=== PATIENT | male | born 1935 | race Caucasian/White ===

== ENCOUNTER 2018-05-23 14:20 | Observation (INO) | payer MEDICARE, OTHER ==
--- NOTE | 2018-05-23 15:09 | ED ---
Syncope/Near Syncope - HPI Summary HPI Summary: This patient is an 82 year old M presenting to [facility] accompanied by his and daughter with a chief complaint of syncope since 1245. Pt doesnt remember events after rising from his couch and walking towards the dining room. Pts was in the kitchen and heard him fall but did not see it. She endorses a chair was knocked over, so he was either trying to sit/fell out of the chair, or simply took it with him during the fall. She notes the pt was unconscious for 3 minutes, and unresponsive for around 1 minute more. Pts endorses pt was continuously rubbing his head after regaining consciousness. Pt endorses confusion for many minutes s/p reawakening. Pt endorses this is the 3rd time this has happened, and second time this month. He notes that this time , as with the past 2 times, pt got up too fast and gets blurred vision, lightheadedness. Rx recently levothyroxine. Today, pt was at PCP office at 1100 AM and was hypotensive, measured at 80/40 at the time. Pt endorses PMHx peripheral neuropathy, paresthesia of hands, ocular migraines. Pt denies abd pain. Pt endorses back soreness. - History Of Current Complaint Time Seen by Provider: 05/23/18 14:24 Hx Obtained From: Patient, Family/Soils Engineer Onset/Duration: Sudden Onset, Lasting Minutes, Resolved Timing: Constant Context: Witnessed, Loss Of Consciousness Activity At Onset: Unknown Aggravating Factor(s): Position Change Alleviating Factor(s): Spontaneous Resolution Associated Signs And Symptoms: AMS - resolved, unresponsive for a few minutes, confused, Lightheadedness, Pain - back, Weakness Related History: Similar Episode/Dx as - 3x total, 2x this month Frequency: Episodes x___ - 3, Episodes Lasting ____ (in Mins/Days/Weeks/Years) - 5-10 minutes - Allergies/Home Medications Allergies/Adverse Reactions: Allergies Allergy/AdvReac Type Severity Reaction Status Date / Time Iodinated Contrast- Oral and Allergy Anaphylatic Verified 05/23/18 18:44 IV Dye Shock Home Medications: Home Medications Alfuzosin HCl [Alfuzosin HCl ER] 10 mg PO DAILY 05/23/18 [History Confirmed ] Allopurinol 100 mg PO DAILY 05/23/18 [History Confirmed 05/23/18] Aspirin [Adult Aspirin] 81 mg PO DAILY 05/23/18 [History Confirmed 05/23/18] Atorvastatin* [Lipitor 20 MG*] 20 mg PO DAILY 05/23/18 [History Confirmed ] Furosemide 20 mg PO DAILY 05/23/18 [History Confirmed 05/23/18] Isosorbide Mononitrate ER TAB* [Imdur ER TAB*] 30 mg PO DAILY 05/23/18 [History Confirmed 05/23/18] Levothyroxine TAB* [Synthroid 25 MCG TAB*] 25 mcg PO DAILY 05/23/18 [History Confirmed 05/23/18] Lisinopril 10 tab PO DAILY 05/23/18 [History Confirmed 05/23/18] Metoprolol Tartrate TAB* [Lopressor TAB*] 25 mg PO BID 05/23/18 [History Confirmed 05/23/18] Nitroglycerin 0.4 mg SL DAILY PRN 05/23/18 [History Confirmed 05/23/18] PMH/Surg Hx/FS Hx/Imm Hx Endocrine/Hematology History: Reports: Hx Thyroid Disease Comment Only: Hx Diabetes - GLAUCOMA Cardiovascular History: Reports: Hx Angina, Hx Coronary Artery Disease, Hx Hypotension, Hx Hypertension - H/O HEART ATTACK, Hx Myocardial Infarction, Other Cardiovascular Problems/Disorders - HX OF ANGINA, TAKES NITRO Denies: Hx Pacemaker/ICD GI History: Denies: Hx Ileostomy History: Reports: Other Problems/Disorders - TURP AND HAS INCONTINENCE Musculoskeletal History: Reports: Hx Back Problems Sensory History: Reports: Hx Cataracts, Hx Contacts or Glasses, Hx Glaucoma, Hx Hearing Aid, Hx Hearing Problem Denies: Hx Deafness Opthamlomology History: Reports: Hx Cataracts, Hx Contacts or Glasses, Hx Glaucoma Denies: Hx Legally Blind EENT History: Reports: Hx Hearing Problem, Hx Hearing Aid Denies: Hx Deafness Neurological History: Reports: Hx Migraine - ocular, Other Neuro Impairments/ Disorders - OCULAR MIGRAINES; NEUROPATHY Psychiatric History: Denies: Hx Autism, Hx Panic Disorder, Hx Schizophrenia - Surgical History Surgery Procedure, Year, and Place: LAMINECTOMY-2008;GALLBLADDER; TURP;CATARACT; CARDIAC CATH W/O STENTS; Infectious Disease History: Denies: Traveled Outside the [place] in Last 30 Days - Family History Known Family History: Positive: Cardiac Disease, Other - CVA Negative: Diabetes - Social History Occupation: Retired Lives: With Family Alcohol Use: None Hx Substance Use: No Substance Use Type: Reports: None Hx Tobacco Use: No Smoking Status (MU): Never Smoked Tobacco Review of Systems Positive: Other - Resolved AMS Positive: Blurred Vision Negative: Abdominal Pain Positive: no symptoms reported Positive: Myalgia - back Positive: Paresthesia - peripheral neuropathy, Numbness - peripheral neuropathy , Syncope All Other Systems Reviewed And Are Negative: Yes Physical Exam - Summary Physical Exam Summary: Appearance: Well appearing, no pain distress Skin: warm, dry, reflects adequate perfusion Head/face: normal Eyes: EOMI, ALEXX ENT: normal Neck: supple, non-tender Respiratory: CTA, breath sounds present Cardiovascular: RRR, pulses symmetrical Abdomen: non-tender, soft Bowel: present Musculoskeletal: normal, strength/ROM intact. Neuro: normal, sensory motor intact, A&Ox3 Triage Information Reviewed: Yes Vital Signs Reviewed: Yes Diagnostics - Laboratory Result Diagrams: 05/23/18 15:24 05/23/18 15:24 Lab Statement: Any lab studies that have been ordered have been reviewed, and results considered in the medical decision making process. - Radiology CXR Xray Interpretation: Positive (See Comments) Radiology Interpretation Completed By: Radiologist - Low lung volumes compared with the prior exam with mild LEFT basilar atelectasis. Dr. Green has reviewed this report. - CT Brain CT Interpretation: No Acute Changes CT Interpretation Completed By: Radiologist - #. No traumatic brain injury evident. #. Suggestion of a small posterior scalp hematoma. #. Mild involutional change and stigmata of chronic small vessel ischemic disease. #. No acute intracranial process evident. Dr. Green has reviewed this report. - EKG 1510 Cardiac Rate: NL - 83 EKG Rhythm: Sinus Rhythm ST Segment: Normal Ectopy: None EKG Interpretation: No acute changes Course/Dx Course Of Treatment: An 82-year-old M presents to the ED with a CC of syncope for 3-5 minutes. (+) blurred vision, LOC, AMS, confusion, lightheadedness, back soreness, hypotension (80/40 at 1100). (-) abd pain, dizziness. 3rd time total, 2nd this month, PMHx ocular migraines, peripheral neuropathy, HTN, thyroid problems. A CXR reveals low lung volumes compared with the prior exam with mild LEFT basilar atelectasis. An EKG reveals NSR at 83 BPM with no acute changes. A CTB reveals. In the ED course, pt was given nl saline. Pt shows low H &H, and high BUN and creatinine. - Diagnoses Differential Diagnosis/HQI/PQRI: Positive: Cerebral Vascular Accident, Dysrhythmia, Metabolic Reaction, Transient Ischemic Attack, Vasovagal Episode Provider Diagnoses: Syncope, Dehydration, Orthostatic hypertension, Renal failure - Physician Notifications Discussed Care of Patient With: Joselyn Campbell Time Discussed With Above Provider: 16:40 Instructed by Provider To: Other - accepts admission - Critical Care Time Critical Care Time: 30-74 min Discharge - Sign-Out/Discharge Documenting (check all that apply): Patient Departure - admit - Discharge Plan Condition: Fair Disposition: ADMITTED TO [facility] - Billing Disposition and Condition Condition: FAIR Disposition: Admitted to [facility] - Attestation Statements Document Initiated by Lonnie: Yes Documenting Scribe: Roger Guerrero Provider For Whom Lonnie is Documenting (Include Credential): Dr. Fco Green MD Scribe Attestation: Roger Hooker, scribed for Dr. Fco Green MD on 05/23/18 at 1843. Scribe Documentation Reviewed: Yes Provider Attestation: The documentation as recorded by the Roger boswell accurately reflects the service I personally performed and the decisions made by Dr. Fco krishna MD
[2018-05-23 15:34] LABS: ABS Basophils 0.1 10^3/ul (0-0.2); ABS Eosinophils 0.1 10^3/ul (0-0.6); ABS Lymphocytes 1.4 10^3/ul (1.0-4.8); ABS Monocytes 0.6 10^3/ul (0-0.8); ABS Neutrophils 6.6 10^3/ul (1.5-7.7); ABS Nucleated RBC 0 10^3/ul; Eosinophil % 0.6 % (0-6); Hematocrit 36 % (42-52); Hemoglobin 11.8 g/dl (14.0-18.0); Lymphocyte % 16.2 % (25-47); Mean Corpuscular HGB Conc 33 g/dl (31-36); Mean Corpuscular Hemoglobin 29 pg (27-31); Mean Corpuscular Volume 87 fL (80-94); Mean Platelet Volume 10.6 um3 (7.4-10.4); Nucleated Red Blood Cells % 0.1; Platelet Count 130 10^3/ul (150-450); Red Blood Count 4.08 10^6/ul (4.00-5.40); Red Cell Distribution Width 15 % (10.5-15); White Blood Count 8.7 10^3/ul (3.5-10.8)
[2018-05-23 15:45] LABS: INR 0.96 (0.77-1.02)
[2018-05-23 15:53] LABS: EGFR Non-African American 31.1 (>60)
--- NOTE | 2018-05-23 15:56 | RAD ---
Indication: Dizziness. Coronary artery disease with prior myocardial infarction. Comparison: April 17, 2018 Technique: Sitting AP chest 1552 hours Report: Suboptimal inspiration for this patient compared with the prior exam with associated mild LEFT basilar atelectasis. No focal pulmonary lesion, compelling alveolar consolidation concerning, pleural effusion, pneumothorax. The heart, pulmonary vasculature, and mediastinal contours are unremarkable. Advanced degenerative arthropathy at the acromioclavicular and glenohumeral joints noted. IMPRESSION: #. Low lung volumes compared with the prior exam with mild LEFT basilar atelectasis.
[2018-05-23] MEDS ORDERED: NS 0.9% 1000 ML* 1,000 ML IV ONE (16:00)
--- NOTE | 2018-05-23 16:08 | RAD ---
Indication: Syncopal episode. Comparison: June 06, 2007 Technique: Noncontrast CT vertex of skull through foramen magnum. Report: Mild prominence of the cerebral sulci and cerebellar fissures reflecting atrophy. Unremarkable ventricles and basal cisterns. Negative for lagunas matter white matter obscuration, intra or extra-axial hemorrhage, or mass effect. Decreased density in the periventricular and subcortical white matter while non-specific is most likely due to chronic microangiopathy. Unremarkable partially visualized orbital contents. Atherosclerotic calcification of the intracranial internal carotid arteries noted. No suspicious calvarial or skull base lesions or fracture evident. Indolent thickening of the inner table of the frontal bone noted without concern. Clear visualized paranasal sinuses and mastoid air spaces. Suggestion of a small posterior scalp hematoma. IMPRESSION: #. No traumatic brain injury evident. #. Suggestion of a small posterior scalp hematoma. #. Mild involutional change and stigmata of chronic small vessel ischemic disease. #. No acute intracranial process evident.
[2018-05-23] MEDS ORDERED: NS 0.9% 1000 ML* 1,000 ML IV SCH (18:45)
[2018-05-23] MEDS: Metoprolol Tartrate TAB* 25 MG PO SCH (21:15)
[2018-05-23] MEDS: Heparin VIAL(*) 5000 UNITS/ML VIAL (FIVE THOUSAND) SUBCUT SCH (21:15)
--- NOTE | 2018-05-23 21:33 | HP ---
CC: Dr. Chandana Espinal; Dr. Beltran Dixon * HISTORY AND PHYSICAL: DATE OF ADMISSION: 05/23/18 PRIMARY CARE PROVIDERS: Dr. Chandana Espinal at the [facility] and Dr. Beltran Dixon. ATTENDING PHYSICIAN: Dr. Segundo York * (dictated by Izabela Elias NP) CHIEF COMPLAINT: Syncopal episode. HISTORY OF PRESENT ILLNESS: Mr. Martinez is an 82-year-old male with past medical history significant for coronary artery disease, status post CA, hepatitis B, ocular migraine, spinal stenosis, status post back surgery, peripheral neuropathy, hyperlipidemia, who was seen at Dr. Dixon's office at approximately 11 a.m. this morning, was noted to be hypotensive with a blood pressure of 80/40. The patient went home and at around 12:45, he had a syncopal episode. He does not recall the events after he got up from the couch and was walking towards the dining room. His was in the kitchen and heard him fall, but did not see it. She noted that chair was knocked over as though he was either trying to sit or fall on to the chair or he knocked it over during his fall. She noted that he was unconscious for 3 to 4 minutes. The patient was continuously rubbing his head after regaining consciousness. He had a few minutes of confusion after reawakening. This is the third time this event has happened. He reports this is the second time this month and previously he had an event at the end of February. The previously 2 times, he had got up too fast, developed blurred vision and lightheadedness. His only recent medication change was levothyroxine. He denies any fevers, chills, chest pain, shortness of breath. He reports ocular migraines, which he often gets an aura prior to them occurring. He felt as though today on his way home from Dr. Dixon's office that the lights were making his vision worse. Due to his syncopal episode, he presented to the emergency room for further evaluation. While in the emergency room, he had a head CT, which was negative for acute findings. He had a chest x-ray with no acute findings. He had EKG without signs of ischemia. He had labs showing an elevated creatinine of 2.05. He was noted to have thrombocytopenia and elevated total bilirubin, troponin of 0.01. He received a liter of fluids. He reported feeling dizziness when being moved from the stretcher to the table for his imaging. Hospitalists were asked to evaluate the patient for admission. PAST MEDICAL HISTORY: 1. Coronary artery disease, status post CA. 2. Hepatitis B. 3. Ocular migraines. 4. Spinal stenosis of the lumbar spine. 5. Peripheral neuropathy. 6. Hyperlipidemia. 7. Hypothyroidism. PAST SURGICAL HISTORY: 1. Status post transurethral resection of the prostate. 2. Status post cholecystectomy. 3. Status post laminectomy at 2 levels of his lumbar spine. 4. Status post bilateral cataract extractions. MEDICATIONS: Home medications include; 1. Nitroglycerin 0.4 mg sublingual daily as needed for chest pain. 2. Metoprolol tartrate 25 mg oral twice daily. 3. Lisinopril 10 mg oral daily. 4. Isosorbide mononitrate 30 mg oral daily. 5. Furosemide 20 mg oral daily. 6. Alfuzosin 10 mg oral daily. 7. Atorvastatin 20 mg oral daily. 8. Allopurinol 100 mg oral daily. 9. Aspirin 81 mg oral daily. 10. Levothyroxine 25 mcg oral daily. ALLERGIES: CONTRAST DYE. FAMILY HISTORY: The patient's brother had a history of congestive heart failure. He has a brother with a history of an CA, status post CABG. His mother had a history of CABG. He had a paternal aunt and uncle who passed suddenly; they were in their 40s; one he believes had a blood clot, the other he is unsure of. Paternal uncle with a history of diabetes mellitus and a paternal grandfather with a history of rectal cancer. SOCIAL HISTORY: He denies tobacco, recreational drug use. He drinks an alcoholic beverage once weekly with his . He lives with his , Lulu Martinez, who will be his surrogate decision maker in the event he is unable to make decisions for himself. REVIEW OF SYSTEMS: I performed an 11-point review of systems. All the pertinent positives and negatives are mentioned in the history of present illness. The patient denies any urinary symptoms. The remaining review of systems is negative. PHYSICAL EXAMINATION GENERAL APPEARANCE: The patient is alert, pleasant, appears to be in no acute distress. VITAL SIGNS: Temperature 97.3, heart rate 93, respiratory rate 25, O2 sat 98% on room air, blood pressure 121/70. HEENT: Normocephalic, atraumatic. Pupils are equal and reactive to light. Extraocular movements are intact. RESPIRATORY: There is no accessory muscle use. Lungs are clear to auscultation , bilateral. CARDIOVASCULAR: Regular rate and rhythm. S1, S2 present. There are no murmurs , rubs, or gallops heard. ABDOMEN: Soft, nontender, nondistended. There are bowel sounds present x4. EXTREMITIES: There is no lower extremity edema. DP and PT pulses are 2+ and symmetric. MUSCULOSKELETAL: There is no clubbing or cyanosis noted. The patient exhibits good strength in all extremities. NEUROLOGICAL: The patient is alert and oriented x4. Cranial nerves II through XII are grossly intact. PSYCHOLOGICAL: The patient is calm and cooperative. SKIN: There are no rashes or abnormalities seen. DIAGNOSTIC STUDIES/LAB DATA: Sodium 137, potassium 4.3, chloride 108, CO2 of 22, BUN 27, creatinine 2.05, glucose 112. White blood cell count 8.7, hemoglobin 11.8, hematocrit 36, platelet count 130. Total bilirubin 1.70. Troponin 0.01. EKG shows a sinus rhythm with a rate of 83, there are no acute signs of ischemia , this is similar to previous EKG from 06/06/07. Chest x-ray from today. Radiologist's impression: Low lung volumes compared with the prior exam with mild left basilar atelectasis. Brain CT from today. Radiologist's impression: No traumatic brain injury evident, suggestive of small posterior scalp hematoma. Mild involutional changes and stigmata of chronic small vessel ischemic disease, no acute intracranial process evident. IMPRESSION: Mr. Martinez is an 82-year-old male with past medical history significant for coronary artery disease, status post CA, hepatitis B, ocular migraines, lumbar spinal stenosis, peripheral neuropathy, hyperlipidemia, and hypothyroidism who presented to the emergency room after a syncopal episode. He will be admitted as an observation for syncope and orthostatic hypotension. ASSESSMENT/PLAN: 1. Syncope. I suspect this is secondary to dehydration and orthostatic hypotension. I am going to monitor the patient on telemetry, trend his troponins. He had a negative brain CT. It is unclear if he has recently had an echo. We will get an echocardiogram in the morning. We will check orthostatic vital signs. We will give him a liter of fluid overnight. I suspect this is secondary to dehydration as he is on furosemide. I am going hold his furosemide. Additionally, I am going to hold his lisinopril at least overnight and his alfuzosin. 2. Elevated creatinine. Acute on chronic kidney disease, stage 3. Based on our records, the patient's last creatinine on record in 2006 was 2.4. Per the patient, his baseline is around 1.9. I am going to obtain his records from his primary care provider, but give him some IV hydration overnight, recheck his labs in the morning. 3. Coronary artery disease, status post CA. The patient will be continued on his home metoprolol with hold parameters, his statin and aspirin. The patient will also be continued on his home Imdur. 4. Hypertension. We are going to hold the patient's lisinopril and continue him on his metoprolol. 5. Spinal stenosis, peripheral neuropathy. We will continue supportive care. 6. Hypothyroidism. We will continue the patient on his home levothyroxine. He reports he was just recently started on this by his primary care provider. 7. Fluids, electrolytes, and nutrition. He will be on a heart healthy diet. 8. Code status. Full code. 9. DVT prophylaxis. He is at high risk. Will have subcu heparin. 10. Disposition. Observation. TIME SPENT: Time for this admission was approximately 60 minutes, greater than half of that was spent with the patient and his discussing medications, past medical history, the events leading up to his arrival today, performing a physical examination. Case has been reviewed with the attending, Dr. York, who agrees with the plan of care. IZABELA ELIAS, SUZANNE [id number]/[facility] #: [id number] VENECIA
[2018-05-24] MEDS: Heparin VIAL(*) 5000 UNITS/ML VIAL (FIVE THOUSAND) SUBCUT SCH ×2 (05:18→15:18)
[2018-05-24 05:39] LABS: Urine Appearance Clear; Urine Blood Negative (Negative); Urine Color Yellow; Urine Ketones Negative (Negative); Urine Protein Negative (Negative); Urine Specific Gravity 1.011 (1.010-1.030); Urine Urobilinogen Negative (Negative)
[2018-05-24] MEDS ORDERED: Levothyroxine TAB* 25 MCG TAB PO SCH (06:00)
[2018-05-24 06:18] LABS: EGFR Non-African American 36.8 (>60)
--- NOTE | 2018-05-24 07:55 | PN ---
Subjective Date of Service: 05/24/18 Interval History: The patient denies any dizziness or presyncope sensation. He has been ambulating around the unit with a steady gait. He would like to go home. He reports he has had syncope before in the past 2 other times when he bent over and stood up quickly and the other time he stood up from a chair. He reports the lasix was prescribed 2-3 months ago for LE edema and he stopped taking in apporx 1 month ago but states he knew he was seeing Dr. Rod yesterday and started taking the diuretic this week again. he states he measures his blood pressure in the morning and is around 130/60 and take it in the afternoon and is the low 100's systolically. at bedside Objective Active Medications: Allopurinol (Zyloprim Tab*) 100 mg PO DAILY PENDING SALE TO [facility] Aspirin (Aspirin Ec Tab*) 81 mg PO DAILY PENDING SALE TO [facility] Atorvastatin Calcium (Lipitor*) 20 mg PO DAILY PENDING SALE TO [facility] Heparin Sodium (Porcine) (Heparin Vial(*)) 5,000 units SUBCUT Q8HR PENDING SALE TO [facility] Last Admin: 05/24/18 05:18 Dose: 5,000 units Isosorbide Mononitrate (Imdur Er Tab*) 30 mg PO DAILY PENDING SALE TO [facility] Levothyroxine Sodium (Synthroid Tab*) 25 mcg PO 0600 PENDING SALE TO [facility] Last Admin: 05/24/18 05:18 Dose: 25 mcg Metoprolol Tartrate (Lopressor Tab*) 25 mg PO BID PENDING SALE TO [facility] Last Admin: 05/23/18 21:15 Dose: 25 mg Vital Signs - 8 hr 05/24/18 05/24/18 00:24 04:22 Temperature 99.1 F 98.7 F Pulse Rate 71 72 Respiratory 20 20 Rate Blood Pressure 109/56 112/49 (mmHg) O2 Sat by Pulse 100 99 Oximetry Oxygen Devices in Use Now: None Appearance: elderly male A+O x3 in NAD Eyes: No Scleral Icterus Ears/Nose/Mouth/Throat: NL Teeth, Lips, Gums Neck: NL Appearance and Movements; NL JVP Respiratory: Symmetrical Chest Expansion and Respiratory Effort, Clear to Auscultation Cardiovascular: NL Sounds; No Murmurs; No JVD, RRR, No Edema Abdominal: NL Sounds; No Tenderness; No Distention Extremities: No Edema, No Clubbing, Cyanosis Skin: No Rash or Ulcers, No Nodules or Sclerosis Neurological: Alert and Oriented x 3, NL Sensation, NL Gait, NL Muscle Strength and Tone Lines/Tubes/Other Access: Clean, Dry and Intact Peripheral IV Nutrition: Taking PO's Result Diagrams: 05/23/18 15:24 05/24/18 05:21 Assess/Plan/Problems-Billing Assessment: 82 yo male with PMH significant for CAD s/p AR, hepatitis B, ocular migraines, lumbar stenosis, peripheral neuropathy HLD, hypothyroidism who presented to the ER on 05/23 with report of syncopal episode and hypotension. - Patient Problems (1) Syncope Comment: suspect orthostatic hypotension - patient had positive orthostasis which resolved with IVFs however I suspect his medications could be causing orthostatic hypotension - Alfuzosin can cause orthstatic hypotention as well as there is a possiblity when combined with nitrate could cause syncope. Plan to DC home and DC lasix, lisinopril, alfuzosin and cut metoprolol dosing in half to 12.5 mg BID Echo - wnls Increase water intake follow up with PCP within 1 week. (2) Acute on chronic renal failure Comment: creatinine around baseline compared to labs from PCP office that were fax in (3) CAD (coronary artery disease) Comment: stable continue BB, (4) HTN (hypertension) Comment: - see above (5) Hypothyroid Comment: - continue synthroid (6) DVT prophylaxis Comment: HSQ (7) Full code status Status and Disposition: plan for DC to home. Discussed plan with patient, and daughter. See dictated discharge summary for full details
[2018-05-24] MEDS ORDERED: Allopurinol TAB* 100 MG PO SCH (09:00)
[2018-05-24] MEDS ORDERED: Isosorbide Mononitrate ER TAB* 30 MG PO SCH (09:00)
[2018-05-24] MEDS ORDERED: Aspirin EC TAB* 81 MG TAB.EC PO SCH (09:00)
[2018-05-24] MEDS ORDERED: Atorvastatin* 20 MG TAB PO SCH (09:00)
[2018-05-24] MEDS: Metoprolol Tartrate TAB* 25 MG PO SCH (09:04)
--- NOTE | 2018-05-24 09:19 | ECHO ---
Patient: MIGUEL MOON [facility] Rec#: [id number] : 1935 Date: 05/24/2018 Age: 82y Height: 172.72 cm / 68.0 in Weight: 90 kg / 198.4 lbs Sex: M BSA: 2.04 Room#: [facility] Admit Date#: 05/23/2018 Type: Inpatient Referring: Loreto Clay NP Reading: Barbara Blackburn MD [address] Man: Loreto Oliveira RDCS CC: Chandana Espinal MD Transthoracic Echocardiogram Indication: Syncope BP: 112/49 HR: 77 Rhythm: NSR Findings History: CAD s/p IL, Hepatitis B, HLD, ocular migraines. Technical Comments: The study quality is fair. Completed at 0845. Left Ventricle: The left ventricular chamber size is decreased. Mild concentric left ventricular hypertrophy is observed. There is a prominent septal knuckle. There is global hypokinesis of the left ventricle with minor regional variation.septal hypokineis seen mid ventricle best seen on 5 and 3 chamber views. There is mild to moderately decreased left ventricular systolic function. The estimated ejection fraction is 45-50%. Abnormal left ventricular diastolic filling is observed, consistent with impaired relaxation. Left Atrium: The left atrium is slightly dilated. Right Ventricle: Moderator Band present. The right ventricular cavity size is normal. The right ventricle wall thickness is mildly increased. The right ventricular global systolic function is normal. Right Atrium: The right atrial cavity size is normal. Aortic Valve: The aortic valve is trileaflet. The aortic valve leaflets are mildly thickened. There is evidence of aortic sclerosis without stenosis. There is a trace of aortic regurgitation. There is no evidence of aortic stenosis. Mitral Valve: There is mitral annular calcification. The mitral valve leaflets are mildly thickened. There is trace to mild mitral regurgitation. There is no evidence of mitral stenosis. Tricuspid Valve: The tricuspid valve leaflets are normal. There is trace tricuspid regurgitation. Unable to estimate the right ventricular systolic pressure. There is no tricuspid stenosis. Pulmonic Valve: The pulmonic valve structure is not well visualized. There is a trace pulmonic regurgitation. There is no pulmonic stenosis. Pericardium: There is no significant pericardial effusion. A pericardial fat pad is visualized. Aorta: There is no dilatation of the ascending aorta. There is no dilatation of the aortic arch. The aortic root is normal in size. Pulmonary Artery: The main pulmonary artery is not well visualized. Venous: The venous system is not well visualized. The inferior vena cava appears normal in size. There is a greater than 50% respiratory change in the inferior vena cava dimension. Conclusions Mild concentric left ventricular hypertrophy is observed. There is global hypokinesis of the left ventricle and mid.septal hypokineis . The estimated ejection fraction is 45%. Abnormal left ventricular diastolic filling is observed, consistent with impaired relaxation. The right ventricle wall thickness is mildly increased. The right ventricular global systolic function is normal. The aortic valve leaflets are mildly thickened. There is a trace of aortic regurgitation. There is trace to mild mitral regurgitation. There is trace tricuspid regurgitation. Prior echos not available to compare. Measurements Name Value Normal Range RVIDd (AP) 2D 3 cm (0.9 - 2.6) RVDdMajor (2D) 3.9 cm (2.2 - 4.4) RVAW (2D) 0.8 cm (0.2 - 0.5) RAd ISD 4CH 4.8 cm (3.4 - 4.9) RA (A4C)W 4.3 cm (2.9 - 4.6) IVSd (2D) 1.1 cm (0.6 - 1) LVPWd (2D) 1.1 cm (0.6 - 1) LVIDd (2D) 2.7 cm (3.6 - 5.4) LVIDs (2D) 2.1 cm - LV FS (2D) 22 % (25 - 45) Aortic Annulus 2.1 cm (1.4 - 2.6) Ao root diameter (2D) 3.5 cm (2.1 - 3.5) Ascending Ao 3.3 cm (2.1 - 3.4) Aortic arch 2.7 cm (1.8 - 3.4) LA dimension (AP) 2D 3.6 cm (2.3 - 3.8) LAd ISD 4CH 4.6 cm (2.9 - 5.3) LA ISD 4CH W 4.6 cm (2.5 - 4.5) Name Value Normal Range LA ESV BP (A/L) index 21 ml/m2 - Name Value Normal Range MV E-wave Vmax 0.8 m/sec - MV deceleration time 148 msec - MV A-wave Vmax 1.4 m/sec - MV E:A ratio 0.6 ratio - LV septal e' Vmax 0.05 m/sec - LV lateral e' Vmax 0.06 m/sec - LV E:e' septal ratio 16 ratio - LV E:e' lateral ratio 13.33 ratio - Name Value Normal Range AV Vmax 1.4 m/sec - AV VTI 29.3 cm - AV peak gradient 8 mmHg - AV mean gradient 4 mmHg - LVOT Vmax 0.9 m/sec - LVOT VTI 20.2 cm - LVOT peak gradient 3 mmHg - LVOT mean gradient 2 mmHg - ASAD Vmax 0.6 m/sec - Name Value Normal Range IVC diameter 1.9 cm - Name Value Normal Range PV Vmax 1.1 m/sec - PV peak gradient 5 mmHg -
[2018-05-24 16:52] VITALS: BP 122/61
[2018-05-24] MEDS ORDERED: Metoprolol Tartrate TAB* 25 MG PO SCH (21:00)
--- NOTE | 2018-05-25 00:43 | DS ---
CC: Dr. Chandana Espinal, [place], [place]; Dr. Beltran Dixon.* DISCHARGE SUMMARY: DATE OF ADMISSION: 05/23/18 DATE OF DISCHARGE: 05/24/18 PROVIDER: Michele Garrison NP ATTENDING PHYSICIAN: Dr. Ibarra * (report dictated by Michele Garrison NP) PRIMARY CARE PROVIDER: Dr. Chandana Espinal, [place], [place] and Dr. Beltran Dixon. DISCHARGE DIAGNOSIS: Orthostatic hypotension. SECONDARY DIAGNOSES: 1. 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 2. Hepatitis B. 3. Ocular migraines. 4. Spinal stenosis of the lumbar spine. 5. Peripheral neuropathy. 6. Hyperlipidemia. HISTORY OF PRESENT ILLNESS AND HOSPITAL COURSE: Please see history and physical by Loreto Kern for full admission details. In summary this is an 82-year- old male with the past medical history stated above, who presented to the emergency department after a syncopal episode at home. The patient earlier that day was seen at Dr. Dixon's office and was noted to be hypotensive with a blood pressure of 80/40. The patient refused to go to the emergency department at that time and went home and around 12:45 he had a syncopal episode in which his was in the kitchen and heard him fall, reported on admission possibly unconscious for 3 or 4 minutes, but today she reports it was probably only for 30 seconds or so. The patient did not suffer any injuries. It is reported that this is the third time that patient has had a similar event. The patient reports all 3 events happened around change of position when he either went to take his shoes off and stood up quickly or went from a sitting to standing position. In the emergency department he was found to have a normal blood pressure of 121/70; however, on evaluation of orthostatic vital signs he is noted to have positive orthostasis. The patient has Lasix listed on his primary home medication list in which he reports he was prescribed Lasix approximately 3 months ago for lower extremity edema. He reports that he stopped taking this approximately 1 month ago; however, he states in preparation of seeing Dr. Dixon yesterday he restarted the Lasix this week. He denied having any lower extremity edema and reported more so that he felt he should have been taking the medication. I have planned to talk to Dr. Dixon about discontinuing it. Today on evaluation, the patient is ambulating around the unit without any symptoms of syncope or presyncope and denies any dizziness. In review of his home medications Dr. Dixon recommended discontinuing the Lasix and lisinopril and I think he would also benefit from a reduction in his metoprolol from 25 mg p.o. b.i.d. down to 12.5 mg p.o. b.i.d. As well, it is noted that he takes Alfuzosin for BPH and one of the main side effects of this medication is orthostatic hypotension. As well it is noted in reading to up to date that it with the combination of a nitrate can exacerbate orthostasis. I discussed this with the family, the patient, as well as his and daughter. The plan will be to discontinue this medication and start him on Finasteride. The patient is stable for discharge to home. Please note, throughout the hospitalization he is noted to have blood pressures in the low 100 systolically to 130. The patient is also noted to have chronic kidney disease. His creatinine is around his baseline at 1.77 which we were provided with [facility] as well as the [facility] which shows the patient's creatinine to be around baseline. The patient had a negative CT of the brain as well as he was monitored on telemetry with 3 flat troponin. No EKG changes noted. He underwent an echocardiogram which was within normal limits showing an EF of 45% with mild concentric left ventricular hypertrophy. Global hypokinesis of the left ventricle and mid septal hypokinesis. Abnormal left ventricular diastolic filling observed consistent with impaired relaxation. The right ventricular wall thickness is mildly increased. The right ventricular global systolic function is normal. The aortic valve leaflets are mildly thickened. There is trace of aortic regurgitation. There is trace to mild mitral regurgitation. There is trace tricuspid regurgitation. There are no prior records to compare to. DISCHARGE PLAN: 1. Follow up with Dr. Dixon within 1 week. 2. Follow up with Dr. Espinal. 3. The patient was encouraged to increase his water intake. 4. The patient was instructed to keep a log of his blood pressures in the morning prior to his medications and 2 to 3 hours after he takes his morning medications to review this log with Dr. Dixon. As well he was instructed to move positions slowly. TIME SPENT: Approximately 60 minutes was spent on this discharge. MICHELE GARRISON, CARDIOVASCULAR OR NURSE [id number]/[facility] #: [id number]
== END 2018-05-24 16:50 | disposition home or self-care (01) ==
LOC: ED 14:20 → MEDTELE 17:21
PROVIDERS: ADMIT Internal Medicine; ATTEND Hospitalist
DX: I95.1 Orthostatic hypotension (principal); R94.4 Abnormal results of kidney function studies; R55 Syncope and collapse; E03.9 Hypothyroidism, unspecified; I11.0 Hypertensive heart disease with heart failure; N18.9 Chronic kidney disease, unspecified; I25.10 Atherosclerotic heart disease of native coronary artery without angina pectoris; I51.7 Cardiomegaly; I25.2 Old myocardial infarction; B19.10 Unspecified viral hepatitis B without hepatic coma; G43.809 Other migraine, not intractable, without status migrainosus; M48.061 Spinal stenosis, lumbar region without neurogenic claudication; G62.9 Polyneuropathy, unspecified; E78.5 Hyperlipidemia, unspecified; Z79.899 Other long term (current) drug therapy; Z91.041 Radiographic dye allergy status; Z79.82 Long term (current) use of aspirin; Z82.49 Family history of ischemic heart disease and other diseases of the circulatory system
CPT/HCPCS: 36415; 70450; 71045; 80048; 80053; 81003; 82550; 83605; 83735; 83880; 84443; 84484; 85025; 85610; 85730; 93005; 93306; 96360; 96361; 96372; 99283; A9270-GY; G0378; G8978-GP-CJ; G8979-GP-CH; J1644

== ENCOUNTER 2019-11-26 10:23 | Emergency (ER) | payer MEDICARE ==
--- OUTSIDE RECORDS SUMMARY | 2019-11-26 10:31 | XMS REPORT | Continuity of Care Document ---
:1935 External Reference #:[id number] Author Name Jack Bernal M.D. Address [address] [place] [address] Care Team Providers Name Role Phone Beltran Elizondo M.D. - Nephrology Care Team Information Application Integration Architect Thee Chicas M.D. - Cardiovascular Care Team Information Application Integration Architect Disease Chandana Espinal M.D. - Family Medicine Care Team Information Application Integration Architect [phone] Problems Active Problems Provider Date Hearing loss Onset: Essential hypertension Onset: Hypercholesterolemia Onset: Spinal stenosis Onset: Gout Onset: Neuropathy Onset: Note: Peripharel Vitamin D deficiency Onset: Decreased renal function Onset: Anxiety Onset: Primary open angle glaucoma Lulu Luo O.D. Onset: 06/03/2015 Moderate Glaucoma Lulu Luo O.D. Onset: 06/03/2015 Tear film insufficiency Lulu Luo O.D. Onset: 01/02/2016 Bilateral primary open angle glaucoma Lulu Luo O.D. Onset: 01/07/2017 Progressive Angina Onset: Social History Type Date Description Comments Sex Unknown ETOH Use Occasionally consumes alcohol Tobacco Use Start: Unknown Patient has never smoked Recreational Drug Use Denies Drug Use Smoking Status Reviewed: 11/20/19 Patient has never smoked Allergies, Adverse Reactions, Alerts Active Allergies Reaction Severity Comments Date Dye IVP 06/03/2015 Medications Active Medications SIG Qnty Indications Ordering Provider Date Dorzolamide HCL Instill 1 Drop 20units H40.1131 Sandra Jeffers/17/2018 2% In Each Eye Two O.D. Solution Times A Day Metoprolol Succinate twice daily Unknown ER 25mg Tablets ER 24HR Allopurinol 1 every day Unknown 100mg Tablets Aspir-Low 1 every day Unknown 81mg Tablets DR Day as needed Unknown 0.3mg Tablets Sub Vitamin B-12 1 every day Unknown 1000mcg Tablets Sub Atorvastatin Calcium 1 every day Unknown 20mg Tablets Finasteride Unknown 5mg Tablets Levothyroxine-Liothyr 50 mg once daily Unknown onine 25mcg Tablets Isosorbide Unknown Mononitrate 20mg Tablets Vitamin D3 Unknown 250mcg (00217 Ut) Capsules Immunizations Description No Information Available Vital Signs Description No Information Available Results Description No Information Available Procedures Description No Information Available Medical Devices Description No Information Available Encounters Description No Information Available Assessments Date Code Description Provider 11/20/2019 H40.1131 Primary open-angle glaucoma, bilateral, Jack Bernal M.D. mild stage Plan of Treatment 11/20/2019 - Jack Bernal M.D.H40.1131 Primary open-angle glaucoma, bilateral, mild stageComments:Smoking can increase the risk of developing or worsening any eye related disease, as well as affect your overall health. If you are a smoker, we strongly recommend that you quit.If you are not a smoker, we strongly recommend that you do not start. Your glaucoma is stable at this time.Your eye pressure is within an acceptable range, and your testing does not show any further deterioration at this time. Please continue your treatment.Follow up:6 Month Follow Up DFE You can expect to have your eyes dilated at your next visit. If Dr. Bernal orders any additional testing, it may require extra time. We recommend that you bring sunglasses, as dilation drops often make you light sensitive until they wear off. We always recommend you bring someone to drive you home if you are uncomfortable driving with your eyes dilated. If you have any questions before your next visit, feel free to call our office at . Functional Status Description No Information Available Mental Status Description No Information Available Referrals Description No Information Available
[2019-11-26 11:28] VITALS: BP 161/104
--- NOTE | 2019-11-26 11:59 | UC ---
Skin Complaint HPI - HPI Summary HPI Summary: 84 year old male with PMH + for cardiac disease presents with right armpit lump x 1 week. Has noted increasing in size and tender. Denies fever, chills. H/ O sebaceous cysts in past. no decreased arm motion. Patient is severely hard of hearing. no other areas. at home to help with symptoms. - History of Current Complaint Chief Complaint: UCSkin Time Seen by Provider: 11/26/19 11:53 Stated Complaint: SKIN COMPLAINT Hx Obtained From: Patient Timing: Constant Onset Severity: Mild Current Severity: Mild Pain Intensity: 4 Pain Scale Used: 0-10 Numeric Location: Discrete - right axilla Character: Swelling, Redness, Raised, Painful Aggravating Factor(s): Touch Alleviating Factor(s): Nothing Associated Signs & Symptoms: Positive: Tenderness. Negative: Drainage - Allergy/Home Medications Allergies/Adverse Reactions: Allergies Allergy/AdvReac Type Severity Reaction Status Date / Time Iodinated Contrast Media Allergy Anaphylatic Verified 11/26/19 11:29 [Iodinated Contrast- Oral Shock and IV Dye] Home Medications: Home Medications Aspirin [Adult Aspirin] 81 mg PO DAILY 05/23/18 [History Confirmed 11/26/19] Atorvastatin* [Lipitor 20 MG*] 20 mg PO DAILY 05/23/18 [History Confirmed ] Isosorbide Mononitrate ER TAB* [Imdur ER TAB*] 30 mg PO DAILY 05/23/18 [History Confirmed 11/26/19] Levothyroxine TAB* [Synthroid 25 MCG TAB*] 25 mcg PO DAILY 05/23/18 [History Confirmed 11/26/19] Nitroglycerin 0.4 mg SL DAILY PRN 05/23/18 [History Confirmed 11/26/19] allopurinoL [Allopurinol] 100 mg PO DAILY 05/23/18 [History Confirmed 11/26/19] Finasteride TAB* [Proscar TAB*] 5 mg PO DAILY #30 tab 05/24/18 [Rx Confirmed 11/15] Metoprolol Tartrate TAB* [Lopressor TAB*] 12.5 mg PO BID #0 tab 05/24/18 [Rx Confirmed 11/26/19] Cephalexin CAP* [Keflex CAP*] 500 mg PO QID #28 cap 11/26/19 [Rx] Cholecalciferol (Vitamin D3) [Vitamin D3] 2,000 unit PO DAILY 11/26/19 [History Confirmed 11/26/19] Folic Acid TAB* [Folvite TAB*] 1 mg PO DAILY 11/26/19 [History Confirmed ] PMH/Surg Hx/FS Hx/Imm Hx Previously Healthy: Yes Cardiovascular History: Cardiac Disease, Hypertension - Surgical History Surgical History: Yes Surgery Procedure, Year, and Place: LAMINECTOMY-2008;GALLBLADDER; TURP;CATARACT; CARDIAC CATH W/O STENTS; - Family History Known Family History: Positive: Cardiac Disease, Other - CVA Negative: Diabetes - Social History Occupation: Retired Lives: With Family - Alcohol Use: Weekly Substance Use Type: None Smoking Status (MU): Never Smoked Tobacco Review of Systems All Other Systems Reviewed And Are Negative: Yes Constitutional: Negative: Fever, Chills, Fatigue Skin: Positive: Rash, Other - swelling ENT: Positive: Negative Cardiovascular: Positive: Negative Gastrointestinal: Positive: Negative Neurological/Mental Status: Positive: Negative Psychological: Positive: Negative Is Patient Immunocompromised?: No Physical Exam Triage Information Reviewed: Yes Appearance: Well-Appearing, No Pain Distress, Well-Nourished Vital Signs: Initial Vital Signs Temp 97.8 F 11/26/19 11:21 Pulse 70 11/26/19 11:21 Resp 16 11/26/19 11:21 BP 161/104 11/26/19 11:21 Pulse Ox 100 11/26/19 11:21 Vital Signs Reviewed: Yes Eyes: Positive: Conjunctiva Clear ENT: Positive: Other - MCGRATH Musculoskeletal Exam: Normal Musculoskeletal: Positive: Strength Intact - right shoulder Neurological Exam: Normal Neurological: Positive: Alert, Other: - SITLT, full ROM of right shoulder Psychological Exam: Normal Psychological: Positive: Normal Response To Family Skin: Positive: Other - ~ 1cm fluctuant mass right axilla midline, TTP, mild erythema, no drinage noted, minimal warmth. no LAD in surrounding region. Procedures - Sedation Patient Received Moderate/Deep Sedation with Procedure: No - Incision and Drainage Right Upper Axilla Site: right axillae Anesthesia: Topical - EMLA Instrument(s): Scalpel Packing: Other - none Course/Dx - Course Course Of Treatment: I&D of right axillae abscess- EMLA overtop for 10 minutes, iodine cleansing, scapula made small incision with purulent drainage expressed, collected for culture. area dressed with sterile gauze and paper tape. Tolerated procedure well, no complications - Keep area covered. - OK to shower, no swimming/ submerging under water - Wash area with warm water, soap while in shower, rinse well - ANtibiotics x 7 days to decrease infection - May require surgical removal if returns - Go to ER with increased pain, fever, chills, decreased use of arm - Drainage was sent for cultures, will be called in 1-2 days if antibiotics are not adequate to cover your bacteria. - Increase fluid intake while taking antibiotics - Diagnoses Provider Diagnosis: Abscess of axilla, right Discharge ED - Sign-Out/Discharge Documenting (check all that apply): Patient Departure All imaging exams completed and their final reports reviewed: No Studies - Discharge Plan Condition: Good Disposition: HOME Prescriptions: Cephalexin CAP* [Keflex CAP*] 500 mg PO QID #28 cap Patient Education Materials: Abscess Incision and Drainage (DC), Cephalexin ( By mouth) Referrals: Chandana Espinal MD [Primary Care Provider] - Additional Instructions: - Keep area covered. - OK to shower, no swimming/ submerging under water - Wash area with warm water, soap while in shower, rinse well - ANtibiotics x 7 days to decrease infection - May require surgical removal if returns - Go to ER with increased pain, fever, chills, decreased use of arm - Drainage was sent for cultures, will be called in 1-2 days if antibiotics are not adequate to cover your bacteria. - Increase fluid intake while taking antibiotics - Billing Disposition and Condition Condition: GOOD Disposition: Home
[2019-11-26] MEDS ORDERED: Lidocaine 2.5%/Prilocain 2.5%* 5 GM TUBE TOPICAL ONE (12:01)
--- NOTE | 2019-11-27 10:29 | UC ---
- Progress Note Progress Note: Wound culture pending. MRSA negative. S. Aureus negative. Rx cephalexin 11/26/19. No immediate antibiotic modification, but still pending final culture result. Course/Dx - Diagnoses Provider Diagnoses: Abscess of axilla, right Discharge ED - Sign-Out/Discharge Documenting (check all that apply): Post-Discharge Follow Up All imaging exams completed and their final reports reviewed: No Studies - Discharge Plan Condition: Good Disposition: HOME Prescriptions: Cephalexin CAP* [Keflex CAP*] 500 mg PO QID #28 cap Patient Education Materials: Cephalexin (By mouth), Abscess Incision and Drainage (DC) Referrals: Chandana Espinal MD [Primary Care Provider] - Additional Instructions: - Keep area covered. - OK to shower, no swimming/ submerging under water - Wash area with warm water, soap while in shower, rinse well - ANtibiotics x 7 days to decrease infection - May require surgical removal if returns - Go to ER with increased pain, fever, chills, decreased use of arm - Drainage was sent for cultures, will be called in 1-2 days if antibiotics are not adequate to cover your bacteria. - Increase fluid intake while taking antibiotics - Billing Disposition and Condition Condition: GOOD Disposition: Home
== END 2019-11-26 12:40 | disposition home or self-care (01) ==
LOC: UCEAST 10:23
DX: L02.411 Cutaneous abscess of right axilla (principal); I10 Essential (primary) hypertension; Z91.041 Radiographic dye allergy status; Z79.82 Long term (current) use of aspirin; Z79.899 Other long term (current) drug therapy
CPT/HCPCS: 10060; 87070; 87185; 87205; 87640; 87641; 99212; A9270-GY; G0463

== ENCOUNTER 2021-12-01 11:11 | Inpatient (IN) ==
[2021-12-01] MEDS ORDERED: Morphine 4 MG/ML VIAL (1 ml) IV ONE (11:46)
[2021-12-01] MEDS ORDERED: Lactated Ringers 1000 ml BAG 1,000 ML IV ONE (11:46)
[2021-12-01] MEDS ORDERED: Ondansetron 4 mg VIAL 2 MG/ML 2 ml VIAL IV ONE (11:46)
[2021-12-01 12:14] LABS: ABS Eosinophils 0.1 10^3/ul (0-0.6); ABS Lymphocytes 0.4 10^3/ul (1.0-4.8); ABS Monocytes 0.3 10^3/ul (0-0.8); ABS Neutrophils 4.6 10^3/ul (1.5-7.7); Eosinophil % 2.4 %; Hematocrit 42 % (42-52); Hemoglobin 13.8 g/dL (14.0-18.0); Lymphocyte % 6.9 %; Mean Corpuscular HGB Conc 33 g/dL (31-36); Mean Corpuscular Hemoglobin 29 pg (27-31); Mean Corpuscular Volume 88 fL (80-94); Mean Platelet Volume 10.6 fL (7.4-10.4); Nucleated Red Blood Cells % 0.1; Platelet Count 137 10^3/uL (150-450); Red Cell Distribution Width 14 % (10-15); White Blood Count 5.5 10^3/uL (3.5-10.8)
[2021-12-01 13:06] LABS: Albumin 3.8 g/dL (3.2-5.2); Albumin/Globulin Ratio 1.3 (1-3); Calcium 9.2 mg/dL (8.6-10.3); Potassium 4.2 mmol/L (3.5-5.0); Total Bilirubin 1.3 mg/dL (0.2-1.0); Total Protein 6.8 g/dL (6.4-8.9); eGFR CKD-EPI 42.5 (>60)
[2021-12-01 16:19] LABS: Urine Appearance Clear; Urine Bilirubin Negative (Negative); Urine Blood Negative (Negative); Urine Color Yellow; Urine Glucose 1+(50 mg/dL) (Negative); Urine Ketones Negative (Negative); Urine Nitrite Negative (Negative); Urine Protein Negative (Negative); Urine Specific Gravity 1.017 (1.002-1.030); Urine Urobilinogen Negative (Negative)
[2021-12-01] MEDS ORDERED: Isosorbide Mononit ER 30mg TAB PO SCH (19:00)
[2021-12-01 19:45] LABS: C Reactive Protein 8.06 mg/L (<8.01)
[2021-12-01 20:00] LABS: TSH Ultra Thyroid Stim Horm 8.36 mcIU/mL (0.34-5.60)
[2021-12-01] MEDS: Aspirin EC 81 mg TAB.EC (enteric coated) PO SCH (20:36)
[2021-12-01] MEDS: Enoxaparin 40 MG/0.4 ML SYR SUBCUT SCH (20:39)
[2021-12-01] MEDS: Pantoprazole VIAL 40 MG VIAL IV SCH (20:39)
[2021-12-01 21:22] LABS: High Sensitivity Troponin 1 Hr 12 pg/mL (<20)
[2021-12-01] MEDS: Dorzolamide 2% OPTH (NF) 10 ML BTL BOTH EYES SCH (22:41)
[2021-12-01] MEDS: Isosorbide Mononit ER 30mg TAB PO SCH (22:41)
[2021-12-02 05:27] LABS: ABS Eosinophils 0.3 10^3/ul (0-0.6); ABS Lymphocytes 1.7 10^3/ul (1.0-4.8); ABS Neutrophils 5.7 10^3/ul (1.5-7.7); Eosinophil % 3.1 %; Hematocrit 35 % (42-52); Hemoglobin 11.7 g/dL (14.0-18.0); Lymphocyte % 19.1 %; Mean Corpuscular HGB Conc 33 g/dL (31-36); Mean Corpuscular Hemoglobin 29 pg (27-31); Mean Corpuscular Volume 88 fL (80-94); Platelet Count 133 10^3/uL (150-450); Red Cell Distribution Width 15 % (10-15); White Blood Count 8.7 10^3/uL (3.5-10.8)
[2021-12-02 05:41] LABS: Albumin 2.8 g/dL (3.2-5.2); Albumin/Globulin Ratio 1.2 (1-3); Calcium 8.5 mg/dL (8.6-10.3); Globulin 2.3 g/dL (2-4); Potassium 4.4 mmol/L (3.5-5.0); Total Bilirubin 1.2 mg/dL (0.2-1.0); Total Protein 5.1 g/dL (6.4-8.9)
[2021-12-02] MEDS: Aspirin EC 81 mg TAB.EC (enteric coated) PO SCH (08:34)
[2021-12-02] MEDS: Isosorbide Mononit ER 30mg TAB PO SCH (08:34)
[2021-12-02] MEDS: Pantoprazole VIAL 40 MG VIAL IV SCH (08:34)
[2021-12-02] MEDS: Dorzolamide 2% OPTH (NF) 10 ML BTL BOTH EYES SCH ×2 (08:38→19:56)
[2021-12-02] MEDS ORDERED: Lactated Ringers 1000 ml BAG 1,000 ML IV SCH (11:00)
[2021-12-02] MEDS: Ondansetron 4 mg VIAL 2 MG/ML 2 ml VIAL IV PRN ×2 (11:05→23:21)
[2021-12-02 15:57] LABS: ABS Lymphocytes 1.1 10^3/ul (1.0-4.8); ABS Monocytes 0.4 10^3/ul (0-0.8); ABS Neutrophils 8.8 10^3/ul (1.5-7.7); Eosinophil % 0.1 %; Hematocrit 39 % (42-52); Hemoglobin 12.7 g/dL (14.0-18.0); Lymphocyte % 10.3 %; Mean Corpuscular HGB Conc 33 g/dL (31-36); Mean Corpuscular Hemoglobin 29 pg (27-31); Mean Corpuscular Volume 88 fL (80-94); Mean Platelet Volume 10.5 fL (7.4-10.4); Platelet Count 154 10^3/uL (150-450); Red Blood Count 4.38 10^6 /uL (4.18-5.48); Red Cell Distribution Width 14 % (10-15); White Blood Count 10.3 10^3/uL (3.5-10.8)
[2021-12-02] MEDS: Enoxaparin 40 MG/0.4 ML SYR SUBCUT SCH (19:56)
[2021-12-03] MEDS ORDERED: Prochlorperazine 5 mg/ml 2 ml VIAL (10 mg) IV ONE (02:31)
[2021-12-03 07:07] LABS: ABS Lymphocytes 0.8 10^3/ul (1.0-4.8); ABS Monocytes 1.4 10^3/ul (0-0.8); Hematocrit 37 % (42-52); Hemoglobin 12.4 g/dL (14.0-18.0); Lymphocyte % 7.5 %; Mean Corpuscular HGB Conc 33 g/dL (31-36); Mean Corpuscular Hemoglobin 29 pg (27-31); Mean Corpuscular Volume 87 fL (80-94); Mean Platelet Volume 10.5 fL (7.4-10.4); Platelet Count 154 10^3/uL (150-450); Red Blood Count 4.29 10^6 /uL (4.18-5.48); Red Cell Distribution Width 14 % (10-15); White Blood Count 11.2 10^3/uL (3.5-10.8)
[2021-12-03] MEDS: Pantoprazole VIAL 40 MG VIAL IV SCH (09:13)
[2021-12-03] MEDS: Ondansetron 4 mg VIAL 2 MG/ML 2 ml VIAL IV PRN ×2 (09:13→17:47)
[2021-12-03] MEDS: Isosorbide Mononit ER 30mg TAB PO SCH (09:19)
[2021-12-03] MEDS: Aspirin EC 81 mg TAB.EC (enteric coated) PO SCH (09:19)
[2021-12-03] MEDS: Dorzolamide 2% OPTH (NF) 10 ML BTL BOTH EYES SCH ×2 (09:19→20:46)
[2021-12-03] MEDS ORDERED: Acetaminophen IV 1 GM/100ML 100 ML IV PRN (11:36)
[2021-12-03] MEDS: cefTRIAXone 1 gm/50 mL NS BAG 1 GM/50 ML BAG IVPB SCH (12:07)
[2021-12-03 12:23] LABS: Calcium 8.9 mg/dL (8.6-10.3); Potassium 4.3 mmol/L (3.5-5.0); eGFR CKD-EPI 47.9 (>60)
[2021-12-03] MEDS: metroNIDAZOLE IV 500 MG/100ML 500 MG/100 ML BAG IVPB SCH ×2 (13:18→21:51)
[2021-12-03] MEDS ORDERED: Lactated Ringers 1000 ml BAG 1,000 ML IV SCH (19:00)
[2021-12-03] MEDS: Enoxaparin 40 MG/0.4 ML SYR SUBCUT SCH (20:44)
[2021-12-04] MEDS: Ondansetron 4 mg VIAL 2 MG/ML 2 ml VIAL IV PRN (05:36)
[2021-12-04] MEDS: metroNIDAZOLE IV 500 MG/100ML 500 MG/100 ML BAG IVPB SCH ×3 (05:37→21:48)
[2021-12-04 06:03] LABS: ABS Lymphocytes 0.8 10^3/ul (1.0-4.8); ABS Neutrophils 6.1 10^3/ul (1.5-7.7); Hematocrit 38 % (42-52); Hemoglobin 12.8 g/dL (14.0-18.0); Lymphocyte % 9.7 %; Mean Corpuscular HGB Conc 33 g/dL (31-36); Mean Corpuscular Hemoglobin 29 pg (27-31); Mean Corpuscular Volume 87 fL (80-94); Mean Platelet Volume 9.9 fL (7.4-10.4); Platelet Count 122 10^3/uL (150-450); Red Cell Distribution Width 14 % (10-15); White Blood Count 7.8 10^3/uL (3.5-10.8)
[2021-12-04 06:44] LABS: Albumin 2.9 g/dL (3.2-5.2); Albumin/Globulin Ratio 1.3 (1-3); Calcium 8.5 mg/dL (8.6-10.3); Globulin 2.3 g/dL (2-4); Magnesium 1.7 mg/dL (1.9-2.7); Potassium 3.9 mmol/L (3.5-5.0); Total Bilirubin 1.7 mg/dL (0.2-1.0); Total Protein 5.2 g/dL (6.4-8.9); eGFR CKD-EPI 55.4 (>60)
[2021-12-04] MEDS ORDERED: Magnesium Sulfate 2 gm BAG 2 GM/50 ML BAG IVPB ONE (07:39)
[2021-12-04] MEDS ORDERED: Lactated Ringers 1000 ml BAG 1,000 ML IV ONE (09:13)
[2021-12-04] MEDS: Isosorbide Mononit ER 30mg TAB PO SCH (10:15)
[2021-12-04] MEDS: Aspirin EC 81 mg TAB.EC (enteric coated) PO SCH (10:16)
[2021-12-04] MEDS: Dorzolamide 2% OPTH (NF) 10 ML BTL BOTH EYES SCH ×2 (10:16→20:31)
[2021-12-04] MEDS: Pantoprazole VIAL 40 MG VIAL IV SCH (10:27)
[2021-12-04] MEDS: cefTRIAXone 1 gm/50 mL NS BAG 1 GM/50 ML BAG IVPB SCH (11:41)
[2021-12-04] MEDS: Enoxaparin 40 MG/0.4 ML SYR SUBCUT SCH (20:31)
[2021-12-05] MEDS: metroNIDAZOLE IV 500 MG/100ML 500 MG/100 ML BAG IVPB SCH ×4 (05:17→21:22)
[2021-12-05 06:30] LABS: ABS Lymphocytes 1.2 10^3/ul (1.0-4.8); ABS Monocytes 0.9 10^3/ul (0-0.8); Eosinophil % 0.2 %; Hematocrit 37 % (42-52); Hemoglobin 12.5 g/dL (14.0-18.0); Lymphocyte % 15.2 %; Mean Corpuscular HGB Conc 34 g/dL (31-36); Mean Corpuscular Hemoglobin 29 pg (27-31); Mean Corpuscular Volume 86 fL (80-94); Mean Platelet Volume 11.6 fL (7.4-10.4); Platelet Count 125 10^3/uL (150-450); Red Blood Count 4.26 10^6 /uL (4.18-5.48); Red Cell Distribution Width 14 % (10-15); White Blood Count 8.1 10^3/uL (3.5-10.8)
[2021-12-05 06:50] LABS: Calcium 8.1 mg/dL (8.6-10.3); Potassium 3.6 mmol/L (3.5-5.0); eGFR CKD-EPI 55.9 (>60)
[2021-12-05] MEDS ORDERED: Lactated Ringers 1000 ml BAG 1,000 ML IV ONE (07:29)
[2021-12-05] MEDS: Lactated Ringers 1000 ml BAG 1,000 ML IV SCH (10:14)
[2021-12-05] MEDS: Pantoprazole VIAL 40 MG VIAL IV SCH (10:14)
[2021-12-05] MEDS: Isosorbide Mononit ER 30mg TAB PO SCH (10:19)
[2021-12-05] MEDS: Aspirin EC 81 mg TAB.EC (enteric coated) PO SCH (10:19)
[2021-12-05] MEDS: Dorzolamide 2% OPTH (NF) 10 ML BTL BOTH EYES SCH ×2 (10:34→21:18)
[2021-12-05] MEDS: cefTRIAXone 1 gm/50 mL NS BAG 1 GM/50 ML BAG IVPB SCH (11:28)
[2021-12-05] MEDS: Enoxaparin 40 MG/0.4 ML SYR SUBCUT SCH (21:19)
[2021-12-06 05:45] LABS: ABS Lymphocytes 1.3 10^3/ul (1.0-4.8); ABS Monocytes 0.8 10^3/ul (0-0.8); ABS Neutrophils 6.4 10^3/ul (1.5-7.7); Eosinophil % 0.4 %; Hematocrit 35 % (42-52); Hemoglobin 11.8 g/dL (14.0-18.0); Lymphocyte % 14.9 %; Mean Corpuscular HGB Conc 34 g/dL (31-36); Mean Corpuscular Hemoglobin 29 pg (27-31); Mean Corpuscular Volume 86 fL (80-94); Mean Platelet Volume 10.2 fL (7.4-10.4); Platelet Count 123 10^3/uL (150-450); Red Blood Count 4.07 10^6 /uL (4.18-5.48); Red Cell Distribution Width 14 % (10-15); White Blood Count 8.6 10^3/uL (3.5-10.8)
[2021-12-06] MEDS: metroNIDAZOLE IV 500 MG/100ML 500 MG/100 ML BAG IVPB SCH ×3 (06:02→21:39)
[2021-12-06 06:26] LABS: Potassium 3.6 mmol/L (3.5-5.0)
[2021-12-06 06:27] LABS: Calcium 7.8 mg/dL (8.6-10.3); Phosphorus 2.7 mg/dL (2.5-5.0); eGFR CKD-EPI 57.6 (>60)
[2021-12-06] MEDS: Isosorbide Mononit ER 30mg TAB PO SCH (08:20)
[2021-12-06] MEDS: Aspirin EC 81 mg TAB.EC (enteric coated) PO SCH (08:20)
[2021-12-06] MEDS: Dorzolamide 2% OPTH (NF) 10 ML BTL BOTH EYES SCH ×2 (08:20→21:40)
[2021-12-06] MEDS: Pantoprazole VIAL 40 MG VIAL IV SCH (08:29)
[2021-12-06] MEDS: Lactated Ringers 1000 ml BAG 1,000 ML IV SCH (08:38)
[2021-12-06] MEDS: cefTRIAXone 1 gm/50 mL NS BAG 1 GM/50 ML BAG IVPB SCH (11:15)
[2021-12-06] MEDS: Enoxaparin 40 MG/0.4 ML SYR SUBCUT SCH (21:40)
[2021-12-07] MEDS: metroNIDAZOLE IV 500 MG/100ML 500 MG/100 ML BAG IVPB SCH ×3 (05:11→21:29)
[2021-12-07 05:42] LABS: ABS Eosinophils 0.1 10^3/ul (0-0.6); ABS Monocytes 0.7 10^3/ul (0-0.8); ABS Neutrophils 6.1 10^3/ul (1.5-7.7); Eosinophil % 0.8 %; Hematocrit 35 % (42-52); Hemoglobin 11.7 g/dL (14.0-18.0); Lymphocyte % 12.7 %; Mean Corpuscular HGB Conc 33 g/dL (31-36); Mean Corpuscular Hemoglobin 29 pg (27-31); Mean Corpuscular Volume 86 fL (80-94); Mean Platelet Volume 11.1 fL (7.4-10.4); Nucleated Red Blood Cells % 0.1; Platelet Count 130 10^3/uL (150-450); Red Blood Count 4.07 10^6 /uL (4.18-5.48); Red Cell Distribution Width 14 % (10-15); White Blood Count 7.9 10^3/uL (3.5-10.8)
[2021-12-07 05:58] LABS: Calcium 7.6 mg/dL (8.6-10.3); Potassium 3.7 mmol/L (3.5-5.0); eGFR CKD-EPI 56.5 (>60)
[2021-12-07] MEDS: Aspirin EC 81 mg TAB.EC (enteric coated) PO SCH (08:41)
[2021-12-07] MEDS: Isosorbide Mononit ER 30mg TAB PO SCH (08:42)
[2021-12-07] MEDS: Pantoprazole VIAL 40 MG VIAL IV SCH (09:00)
[2021-12-07] MEDS: Lactated Ringers 1000 ml BAG 1,000 ML IV SCH (10:07)
[2021-12-07] MEDS: Dorzolamide 2% OPTH (NF) 10 ML BTL BOTH EYES SCH ×2 (10:10→21:35)
[2021-12-07] MEDS: cefTRIAXone 1 gm/50 mL NS BAG 1 GM/50 ML BAG IVPB SCH (11:57)
[2021-12-07] MEDS: D5NS 0.9% 1000 ml BAG 1,000 ML IV SCH (14:31)
[2021-12-07] MEDS: Enoxaparin 40 MG/0.4 ML SYR SUBCUT SCH (21:28)
[2021-12-08] MEDS: metroNIDAZOLE IV 500 MG/100ML 500 MG/100 ML BAG IVPB SCH ×2 (06:29→18:49)
[2021-12-08] MEDS: D5NS 0.9% 1000 ml BAG 1,000 ML IV SCH (06:29)
[2021-12-08 06:47] LABS: ABS Eosinophils 0.1 10^3/ul (0-0.6); ABS Lymphocytes 0.9 10^3/ul (1.0-4.8); ABS Monocytes 0.8 10^3/ul (0-0.8); ABS Neutrophils 4.3 10^3/ul (1.5-7.7); Eosinophil % 1.8 %; Hematocrit 34 % (42-52); Hemoglobin 11.5 g/dL (14.0-18.0); Lymphocyte % 14.5 %; Mean Corpuscular HGB Conc 33 g/dL (31-36); Mean Corpuscular Hemoglobin 29 pg (27-31); Mean Corpuscular Volume 87 fL (80-94); Mean Platelet Volume 11.2 fL (7.4-10.4); Platelet Count 121 10^3/uL (150-450); Red Blood Count 3.96 10^6 /uL (4.18-5.48); Red Cell Distribution Width 14 % (10-15); White Blood Count 6.1 10^3/uL (3.5-10.8)
[2021-12-08 07:00] LABS: Calcium 7.5 mg/dL (8.6-10.3); Potassium 3.4 mmol/L (3.5-5.0); eGFR CKD-EPI 56.5 (>60)
[2021-12-08] MEDS ORDERED: KCL 20 MEQ/100 ML IVPREMIX 20 MEQ/100 ML BAG IV ONE (07:50)
[2021-12-08 08:19] LABS: Magnesium 1.9 mg/dL (1.9-2.7)
[2021-12-08] MEDS: Pantoprazole VIAL 40 MG VIAL IV SCH (09:36)
[2021-12-08] MEDS: Dorzolamide 2% OPTH (NF) 10 ML BTL BOTH EYES SCH ×2 (09:37→20:24)
[2021-12-08] MEDS: Aspirin EC 81 mg TAB.EC (enteric coated) PO SCH (09:37)
[2021-12-08] MEDS: Isosorbide Mononit ER 30mg TAB PO SCH (09:37)
[2021-12-08] MEDS: cefTRIAXone 1 gm/50 mL NS BAG 1 GM/50 ML BAG IVPB SCH (13:59)
[2021-12-08] MEDS: Enoxaparin 40 MG/0.4 ML SYR SUBCUT SCH (20:23)
[2021-12-09] MEDS: metroNIDAZOLE IV 500 MG/100ML 500 MG/100 ML BAG IVPB SCH ×3 (01:52→18:05)
[2021-12-09 06:35] LABS: Calcium 7.5 mg/dL (8.6-10.3); Potassium 3.9 mmol/L (3.5-5.0)
[2021-12-09] MEDS: Pantoprazole VIAL 40 MG VIAL IV SCH (10:43)
[2021-12-09] MEDS: Aspirin EC 81 mg TAB.EC (enteric coated) PO SCH (10:44)
[2021-12-09] MEDS: Isosorbide Mononit ER 30mg TAB PO SCH (10:44)
[2021-12-09] MEDS: Dorzolamide 2% OPTH (NF) 10 ML BTL BOTH EYES SCH ×2 (12:00→21:04)
[2021-12-09] MEDS: cefTRIAXone 1 gm/50 mL NS BAG 1 GM/50 ML BAG IVPB SCH (12:46)
[2021-12-09] MEDS: Enoxaparin 40 MG/0.4 ML SYR SUBCUT SCH (21:04)
[2021-12-10 10:10] LABS: Rapid COVID-19 Molecular Undetected (Undetected)
[2021-12-10] MEDS: Pantoprazole VIAL 40 MG VIAL IV SCH (10:23)
[2021-12-10] MEDS: Aspirin EC 81 mg TAB.EC (enteric coated) PO SCH (10:24)
[2021-12-10] MEDS: Isosorbide Mononit ER 30mg TAB PO SCH (10:24)
[2021-12-10 12:18] VITALS: BP 109/52
== END 2021-12-10 13:45 | DRG 389 ==
LOC: SUATTDRO → EDHOLD 11:11 → ED 11:11 → SUATTDRO 18:27 → MED 20:22 → SUATTDRO 12-03 12:56
PROVIDERS: ADMIT Family Medicine; ATTEND Student in an Organized Health Care Education/Training Program

== ENCOUNTER 2022-12-01 22:00 | Inpatient (IN) ==
[2022-12-01 23:12] LABS: ABS Eosinophils 0.2 10^3/ul (0-0.6); ABS Lymphocytes 0.9 10^3/ul (1.0-4.8); ABS Monocytes 0.8 10^3/ul (0-0.8); Eosinophil % 2.9 %; Hematocrit 38 % (42-52); Hemoglobin 12.4 g/dL (14.0-18.0); Lymphocyte % 15.7 %; Mean Corpuscular HGB Conc 33 g/dL (31-36); Mean Corpuscular Hemoglobin 28 pg (27-31); Mean Corpuscular Volume 85 fL (80-94); Mean Platelet Volume 9.2 fL (7.4-10.4); Platelet Count 161 10^3/uL (150-450); Red Blood Count 4.44 10^6 /uL (4.18-5.48); Red Cell Distribution Width 14 % (10-15); White Blood Count 5.9 10^3/uL (3.5-10.8)
[2022-12-01 23:46] LABS: Albumin 3.3 g/dL (3.2-5.2); Albumin/Globulin Ratio 1.1 (1-3); CRP High Sensitivity 12.46 mg/L (<2.00); Calcium 9.1 mg/dL (8.6-10.3); Creatinine, Serum 1.04 mg/dL (0.67-1.17); Globulin 2.9 g/dL (2-4); Potassium 4.5 mmol/L (3.5-5.0); Total Bilirubin 0.7 mg/dL (0.2-1.0); Total Protein 6.2 g/dL (6.4-8.9); eGFR CKD-EPI 68.6 (>60)
[2022-12-02 04:16] LABS: Urine Appearance Clear; Urine Bilirubin Negative (Negative); Urine Blood Negative (Negative); Urine Color Straw; Urine Glucose Negative (Negative); Urine Ketones Negative (Negative); Urine Nitrite Negative (Negative); Urine Protein Negative (Negative); Urine Specific Gravity 1.009 (1.002-1.030); Urine Urobilinogen Negative (Negative)
[2022-12-02] MEDS ORDERED: Lactated Ringers 1000 ml BAG 1,000 ML IV ONE (11:50)
[2022-12-02] MEDS: Polyethylene Glycol 3350 17 GM PACKET PO SCH ×2 (12:26→21:31)
[2022-12-02] MEDS: Senna TAB 8.6 mg TAB PO SCH (12:26)
[2022-12-02] MEDS ORDERED: Magnesium CITRATE LIQ 300 ML BTL PO ONE (12:29)
[2022-12-02] MEDS: Aspirin EC 81 mg TAB.EC (enteric coated) PO SCH (14:09)
[2022-12-02] MEDS: Enoxaparin 30 MG/0.3 ML SYR SUBCUT SCH (21:30)
[2022-12-02] MEDS: Lactulose 30 ml UDC PO SCH (21:31)
[2022-12-02] MEDS: CMCS: Dorzolamide 2% OPTH (NF) 10 ML BTL BOTH EYES SCH (21:31)
[2022-12-03 05:44] LABS: ABS Eosinophils 0.1 10^3/ul (0-0.6); ABS Lymphocytes 1.2 10^3/ul (1.0-4.8); ABS Monocytes 1.4 10^3/ul (0-0.8); ABS Neutrophils 12.2 10^3/ul (1.5-7.7); Eosinophil % 0.7 %; Hematocrit 36 % (42-52); Hemoglobin 11.6 g/dL (14.0-18.0); Lymphocyte % 8.1 %; Mean Corpuscular HGB Conc 32 g/dL (31-36); Mean Corpuscular Hemoglobin 28 pg (27-31); Mean Corpuscular Volume 86 fL (80-94); Mean Platelet Volume 9.7 fL (7.4-10.4); Platelet Count 160 10^3/uL (150-450); Red Blood Count 4.15 10^6 /uL (4.18-5.48); Red Cell Distribution Width 14 % (10-15)
[2022-12-03 06:03] LABS: Calcium 8.5 mg/dL (8.6-10.3); Creatinine, Serum 1.14 mg/dL (0.67-1.17); Magnesium 1.9 mg/dL (1.9-2.7); Potassium 4.3 mmol/L (3.5-5.0); eGFR CKD-EPI 61.5 (>60)
[2022-12-03 06:15] LABS: TSH Ultra Thyroid Stim Horm 1.37 mcIU/mL (0.34-5.60)
[2022-12-03 08:07] LABS: C Reactive Protein 18.4 mg/L (<8.01)
[2022-12-03] MEDS: Aspirin EC 81 mg TAB.EC (enteric coated) PO SCH (08:50)
[2022-12-03] MEDS: Isosorbide Mononit ER 30mg TAB PO SCH (08:50)
[2022-12-03] MEDS: CMCS: Dorzolamide 2% OPTH (NF) 10 ML BTL BOTH EYES SCH ×2 (08:52→20:51)
[2022-12-03] MEDS ORDERED: Aspirin EC 81 mg TAB.EC (enteric coated) PO SCH (09:00)
[2022-12-03] MEDS: Lactulose 30 ml UDC PO SCH (09:01)
[2022-12-03] MEDS: Polyethylene Glycol 3350 17 GM PACKET PO SCH (09:01)
[2022-12-03] MEDS: Senna TAB 8.6 mg TAB PO SCH (09:02)
[2022-12-03] MEDS ORDERED: Magnesium Hydroxide LIQ 30 ML UDC PO PRN (11:19)
[2022-12-03] MEDS ORDERED: Lactated Ringers 1000 ml BAG 1,000 ML IV ONE (11:52)
[2022-12-03] MEDS ORDERED: Polyethylene Glycol 3350 17 GM PACKET PO PRN (12:29)
[2022-12-03] MEDS: Enoxaparin 30 MG/0.3 ML SYR SUBCUT SCH (20:51)
[2022-12-04 06:15] LABS: ABS Eosinophils 0.3 10^3/ul (0-0.6); ABS Lymphocytes 1.8 10^3/ul (1.0-4.8); ABS Monocytes 0.8 10^3/ul (0-0.8); ABS Neutrophils 4.6 10^3/ul (1.5-7.7); Eosinophil % 3.6 %; Hematocrit 32 % (42-52); Hemoglobin 11.1 g/dL (14.0-18.0); Lymphocyte % 23.2 %; Mean Corpuscular HGB Conc 34 g/dL (31-36); Mean Corpuscular Hemoglobin 30 pg (27-31); Mean Corpuscular Volume 86 fL (80-94); Platelet Count 141 10^3/uL (150-450); Red Blood Count 3.74 10^6 /uL (4.18-5.48); Red Cell Distribution Width 14 % (10-15); White Blood Count 7.6 10^3/uL (3.5-10.8)
[2022-12-04 06:30] LABS: Calcium 8.5 mg/dL (8.6-10.3); Creatinine, Serum 1.08 mg/dL (0.67-1.17); Potassium 4.3 mmol/L (3.5-5.0); eGFR CKD-EPI 65.6 (>60)
[2022-12-04] MEDS: Aspirin EC 81 mg TAB.EC (enteric coated) PO SCH (10:21)
[2022-12-04] MEDS: Senna TAB 8.6 mg TAB PO SCH (10:23)
[2022-12-04] MEDS: Isosorbide Mononit ER 30mg TAB PO SCH (10:26)
[2022-12-04] MEDS: CMCS: Dorzolamide 2% OPTH (NF) 10 ML BTL BOTH EYES SCH ×2 (10:27→21:46)
[2022-12-04] MEDS: Enoxaparin 30 MG/0.3 ML SYR SUBCUT SCH (21:46)
[2022-12-05] MEDS: Aspirin EC 81 mg TAB.EC (enteric coated) PO SCH (10:13)
[2022-12-05] MEDS: Isosorbide Mononit ER 30mg TAB PO SCH (10:13)
[2022-12-05] MEDS: Senna TAB 8.6 mg TAB PO SCH (10:36)
[2022-12-05] MEDS: CMCS: Dorzolamide 2% OPTH (NF) 10 ML BTL BOTH EYES SCH ×2 (10:55→21:21)
[2022-12-05] MEDS: Enoxaparin 30 MG/0.3 ML SYR SUBCUT SCH (21:21)
[2022-12-06 08:15] LABS: ABS Eosinophils 0.3 10^3/ul (0-0.6); ABS Lymphocytes 1.6 10^3/ul (1.0-4.8); ABS Monocytes 0.7 10^3/ul (0-0.8); ABS Neutrophils 4.1 10^3/ul (1.5-7.7); Eosinophil % 4.2 %; Hematocrit 35 % (42-52); Hemoglobin 11.6 g/dL (14.0-18.0); Mean Corpuscular HGB Conc 33 g/dL (31-36); Mean Corpuscular Hemoglobin 28 pg (27-31); Mean Corpuscular Volume 84 fL (80-94); Mean Platelet Volume 9.3 fL (7.4-10.4); Nucleated Red Blood Cells % 0.1; Platelet Count 162 10^3/uL (150-450); Red Blood Count 4.16 10^6 /uL (4.18-5.48); Red Cell Distribution Width 14 % (10-15); White Blood Count 6.8 10^3/uL (3.5-10.8)
[2022-12-06] MEDS: Aspirin EC 81 mg TAB.EC (enteric coated) PO SCH (09:58)
[2022-12-06] MEDS: Isosorbide Mononit ER 30mg TAB PO SCH (10:01)
[2022-12-06] MEDS: Senna TAB 8.6 mg TAB PO SCH (10:01)
[2022-12-06] MEDS: CMCS: Dorzolamide 2% OPTH (NF) 10 ML BTL BOTH EYES SCH (10:02)
[2022-12-06 13:56] VITALS: BP 136/66
[2022-12-06 14:42] LABS: Urine Appearance Clear; Urine Bilirubin Negative (Negative); Urine Blood Negative (Negative); Urine Color Yellow; Urine Glucose Negative (Negative); Urine Ketones Negative (Negative); Urine Nitrite Negative (Negative); Urine Protein Negative (Negative); Urine Urobilinogen Negative (Negative)
== END 2022-12-06 17:00 | disposition home or self-care (01) | DRG 200 ==
LOC: EDHOLD 22:00 → ED 22:00 → SUATTDRO 12-02 11:47 → MED 12-02 18:29
PROVIDERS: ADMIT Internal Medicine; ATTEND Internal Medicine

== ENCOUNTER 2023-05-08 19:55 | Observation (INO) ==
[2023-05-08 20:45] LABS: ABS Eosinophils 0.1 10^3/uL (0.0-0.5); ABS Lymphocytes 1.4 10^3/uL (1.0-4.8); ABS Monocytes 0.8 10^3/uL (0.0-1.1); ABS Neutrophils 6.2 10^3/uL (1.5-7.6); Eosinophil % 1.1 %; Hematocrit 39.7 % (38-53); Hemoglobin 13.6 g/dL (13.2-16.3); Lymphocyte % 16.1 %; Mean Corpuscular Hemoglobin 28.5 pg (27-33); Mean Corpuscular Hgb Conc 34.1 g/dL (31-36); Mean Corpuscular Volume 83.6 fL (80-97); Mean Platelet Volume 9.6 fL (7.5-11.2); Platelet Count 193 10^3/uL (150-450); Red Blood Count 4.75 10^6/uL (4.06-5.63); Red Cell Distribution Width 14.1 % (12-17); White Blood Count 8.5 10^3/uL (3.6-10.2)
[2023-05-08 21:04] LABS: Albumin 3.2 g/dL (3.2-5.2); Albumin/Globulin Ratio 0.8 (1-3); Calcium 9.2 mg/dL (8.6-10.3); Creatinine, Serum 1.01 mg/dL (0.67-1.17); Globulin 3.8 g/dL (2-4); Potassium 4.4 mmol/L (3.5-5.0); eGFR CKD-EPI 71.1 (>60)
[2023-05-08 22:13] LABS: Urine Appearance Cloudy; Urine Bilirubin Negative (Negative); Urine Blood Negative (Negative); Urine Color Yellow; Urine Glucose Negative (Negative); Urine Ketones Negative (Negative); Urine Nitrite Positive (Negative); Urine Protein Negative (Negative); Urine Specific Gravity 1.013 (1.002-1.030); Urine Urobilinogen Negative (Negative)
[2023-05-08 22:17] LABS: Urine Bacteria 1+ (Absent); Urine Red Blood Cell 1+(3-5/hpf) (Absent); Urine Squamous Epithelial Cell Present (Absent); Urine White Blood Cell 3+(>20/hpf) (Absent)
[2023-05-08] MEDS ORDERED: cefTRIAXone 2 GM ADDV.VIAL 2 GM in NS 0.9% 100 ml BAG 100 ML IV ONE (22:44)
[2023-05-08] MEDS ORDERED: cefTRIAXone 2 gm/50 mL D5W 2 GM/50 ML BAG IV ONE (23:00)
[2023-05-09] MEDS ORDERED: Mineral Oil ENEMA 118 ML/BOTTLE BOTTLE PR ONE (00:17)
[2023-05-09] MEDS: Lactated Ringers 1000 ml BAG 1,000 ML IV SCH (04:51)
[2023-05-09] MEDS: Enoxaparin 40 MG/0.4 ML SYR SUBCUT SCH (06:25)
[2023-05-09 08:57] LABS: ABS Basophils 0.1 10^3/uL (0.0-0.1); ABS Eosinophils 0.1 10^3/uL (0.0-0.5); ABS Lymphocytes 1.4 10^3/uL (1.0-4.8); ABS Monocytes 0.7 10^3/uL (0.0-1.1); ABS Neutrophils 5.3 10^3/uL (1.5-7.6); ABS Nucleated RBC 0.01 10^3/ul; Eosinophil % 1.8 %; Hematocrit 38.7 % (38-53); Hemoglobin 13.1 g/dL (13.2-16.3); Lymphocyte % 18.4 %; Mean Corpuscular Hemoglobin 28.4 pg (27-33); Mean Corpuscular Hgb Conc 33.8 g/dL (31-36); Mean Platelet Volume 9.4 fL (7.5-11.2); Nucleated Red Blood Cells % 0.1 /100 WBC (0.0-0.4); Platelet Count 173 10^3/uL (150-450); Red Blood Count 4.61 10^6/uL (4.06-5.63); Red Cell Distribution Width 14.5 % (12-17); White Blood Count 7.6 10^3/uL (3.6-10.2)
[2023-05-09 09:22] LABS: Albumin/Globulin Ratio 0.8 (1-3); Calcium 8.9 mg/dL (8.6-10.3); Creatinine, Serum 1.05 mg/dL (0.67-1.17); Globulin 3.8 g/dL (2-4); Magnesium 1.8 mg/dL (1.9-2.7); Potassium 4.1 mmol/L (3.5-5.0); Total Bilirubin 0.8 mg/dL (0.2-1.0); Total Protein 6.8 g/dL (6.4-8.9); eGFR CKD-EPI 67.9 (>60)
[2023-05-09] MEDS: Cholecalciferol (VIT D3) 1,000 unit TAB PO SCH (09:51)
[2023-05-09] MEDS: Isosorbide Mononit ER 30mg TAB PO SCH (09:51)
[2023-05-09] MEDS: Aspirin EC 81 mg TAB.EC (enteric coated) PO SCH (09:51)
[2023-05-09] MEDS: Polyethylene Glycol 3350 17 GM PACKET PO SCH (09:51)
[2023-05-09] MEDS: CMCS:Dorzolamide 2% OPTH (NF) 10 ML BTL BOTH EYES SCH ×2 (10:05→22:54)
[2023-05-09 10:53] LABS: High Sensitivity Troponin 1 Hr 13 pg/mL (<20)
[2023-05-09] MEDS: Senna TAB 8.6 mg TAB PO SCH (20:45)
[2023-05-09] MEDS: cefTRIAXone 1 gm/50 mL D5W 1 GM/50 ML BAG IV SCH (22:54)
[2023-05-10] MEDS: Enoxaparin 40 MG/0.4 ML SYR SUBCUT SCH ×2 (01:36→23:27)
[2023-05-10 06:47] LABS: ABS Eosinophils 0.2 10^3/uL (0.0-0.5); ABS Lymphocytes 1.4 10^3/uL (1.0-4.8); ABS Monocytes 0.6 10^3/uL (0.0-1.1); Eosinophil % 2.5 %; Hemoglobin 11.1 g/dL (13.2-16.3); Lymphocyte % 22.1 %; Mean Corpuscular Hemoglobin 28.4 pg (27-33); Mean Corpuscular Hgb Conc 33.8 g/dL (31-36); Mean Corpuscular Volume 84.1 fL (80-97); Mean Platelet Volume 10.7 fL (7.5-11.2); Nucleated Red Blood Cells % 0.1 /100 WBC (0.0-0.4); Platelet Count 161 10^3/uL (150-450); Red Blood Count 3.92 10^6/uL (4.06-5.63); Red Cell Distribution Width 14.4 % (12-17); White Blood Count 6.3 10^3/uL (3.6-10.2)
[2023-05-10] MEDS: Lactated Ringers 1000 ml BAG 1,000 ML IV SCH (07:03)
[2023-05-10 07:04] LABS: Albumin 2.7 g/dL (3.2-5.2); Albumin/Globulin Ratio 0.8 (1-3); Calcium 8.5 mg/dL (8.6-10.3); Creatinine, Serum 0.95 mg/dL (0.67-1.17); Globulin 3.2 g/dL (2-4); Magnesium 1.8 mg/dL (1.9-2.7); Phosphorus 2.8 mg/dL (2.5-5.0); Potassium 4.5 mmol/L (3.5-5.0); Total Bilirubin 0.8 mg/dL (0.2-1.0); Total Protein 5.9 g/dL (6.4-8.9); eGFR CKD-EPI 76.5 (>60)
[2023-05-10] MEDS: Aspirin EC 81 mg TAB.EC (enteric coated) PO SCH (10:07)
[2023-05-10] MEDS: Cholecalciferol (VIT D3) 1,000 unit TAB PO SCH (10:07)
[2023-05-10] MEDS: Isosorbide Mononit ER 30mg TAB PO SCH (10:07)
[2023-05-10] MEDS: Polyethylene Glycol 3350 17 GM PACKET PO SCH (10:08)
[2023-05-10] MEDS: CMCS:Dorzolamide 2% OPTH (NF) 10 ML BTL BOTH EYES SCH ×2 (10:30→20:25)
[2023-05-10] MEDS: Senna TAB 8.6 mg TAB PO SCH (20:24)
[2023-05-10] MEDS: cefTRIAXone 1 gm/50 mL D5W 1 GM/50 ML BAG IV SCH (23:26)
[2023-05-11 06:16] LABS: ABS Eosinophils 0.1 10^3/uL (0.0-0.5); ABS Lymphocytes 1.4 10^3/uL (1.0-4.8); ABS Monocytes 0.6 10^3/uL (0.0-1.1); ABS Nucleated RBC 0.01 10^3/ul; Eosinophil % 2.7 %; Hematocrit 32.3 % (38-53); Hemoglobin 10.8 g/dL (13.2-16.3); Lymphocyte % 26.6 %; Mean Corpuscular Hemoglobin 28.2 pg (27-33); Mean Corpuscular Hgb Conc 33.5 g/dL (31-36); Mean Corpuscular Volume 84.1 fL (80-97); Mean Platelet Volume 9.5 fL (7.5-11.2); Nucleated Red Blood Cells % 0.1 /100 WBC (0.0-0.4); Platelet Count 151 10^3/uL (150-450); Red Blood Count 3.83 10^6/uL (4.06-5.63); White Blood Count 5.2 10^3/uL (3.6-10.2)
[2023-05-11 06:33] LABS: Calcium 8.3 mg/dL (8.6-10.3); Creatinine, Serum 1.02 mg/dL (0.67-1.17); Magnesium 1.8 mg/dL (1.9-2.7); Potassium 4.6 mmol/L (3.5-5.0); eGFR CKD-EPI 70.3 (>60)
[2023-05-11] MEDS: Cholecalciferol (VIT D3) 1,000 unit TAB PO SCH (09:45)
[2023-05-11] MEDS: Isosorbide Mononit ER 30mg TAB PO SCH (09:45)
[2023-05-11] MEDS: Aspirin EC 81 mg TAB.EC (enteric coated) PO SCH (09:46)
[2023-05-11] MEDS: Polyethylene Glycol 3350 17 GM PACKET PO SCH (09:47)
[2023-05-11] MEDS: CMCS:Dorzolamide 2% OPTH (NF) 10 ML BTL BOTH EYES SCH (09:47)
[2023-05-11] MEDS ORDERED: Magnesium Sulfate 2 gm BAG 2 GM/50 ML BAG IVPB ONE (10:00)
[2023-05-11 10:01] VITALS: BP 145/68
== END 2023-05-11 11:29 ==
LOC: ED 19:55 → EDHOLD 05-09 00:11 → INTOOBSV 05-09 00:11 → SUATTDRO 05-09 00:11 → MED 05-09 07:04
PROVIDERS: ADMIT Internal Medicine; ATTEND Internal Medicine